=== PATIENT | female | born 1975 | race Caucasian/White ===

== ENCOUNTER 2016-06-30 21:56 | Emergency (ER) | payer BC ==
--- NOTE | 2016-06-30 22:03 | UC ---
Skin Complaint HPI - History of Current Complaint Time Seen by Provider: 06/30/16 21:58 Stated Complaint: RASH Hx Obtained From: Patient Hx Last Menstrual Period: 11/19/15 ?: No Onset/Duration: Sudden Onset, Lasting Hours - 12, Worse Since - this evening. Timing: Constant Location: Diffuse - abdomen, chest, back Character: Pruritus, Redness Aggravating: Nothing Alleviating: Nothing Associated Signs & Symptoms: Negative: Diaphoresis, Weakness, Fever, Chills, Throat Tightening Related History: Other: - has had a virus this past week. - Allergy/Home Medications Allergies/Adverse Reactions: Allergies Allergy/AdvReac Type Severity Reaction Status Date / Time Latex Allergy Unknown See Comment Verified 06/30/16 22:03 Erythromycin AdvReac Unknown Nausea Verified 06/30/16 22:03 Home Medications: Home Medications diPHENhydraMINE PO* [Benadryl PO*] 50 mg PO Q6H PRN 06/30/16 [History Confirmed 06/30/16] Review of Systems Skin: Rash All Other Systems Reviewed And Are Negative: Yes PMH/Surg Hx/FS Hx/Imm Hx Endocrine History Of: Reports: Thyroid Disease - JUST WITH Denies: Diabetes, Hypothyroidism Cardiovascular History Of: Denies: Cardiac Disorders, Hypertension Respiratory History Of: Denies: COPD, Asthma GI/ History Of: Denies: Ulcer Psychological History Of: Denies: Anxiety, Depression - Surgical History Surgical History: None - Family History Known Family History: Positive: Cardiac Disease, Hypertension, Diabetes - Social History Occupation: Employed Full-time Lives: With Family Alcohol Use: Rare Substance Use Type: None Smoking Status (MU): Former Smoker When Did the Patient Quit Smoking/Using Tobacco: 20 YRS AGO Physical Exam Triage Information Reviewed: Yes Appearance: Well-Appearing, No Pain Distress, Well-Nourished Vital Signs Reviewed: Yes Eyes: Positive: Conjunctiva Clear ENT: Positive: Pharynx normal, TMs normal Neck exam: Normal Respiratory Exam: Normal Cardiovascular Exam: Normal Musculoskeletal Exam: Normal Neurological Exam: Normal Psychological Exam: Normal Skin: Positive: rashes Course/Dx - Differential Diagnoses - Skin Complaint Differential Diagnoses: Drug Rash, Eczema, Urticaria - Diagnoses Provider Diagnoses: acute utricaria. Viral [place] Discharge - Discharge Plan Condition: Stable Disposition: HOME Prescriptions: predniSONE TAB* [Deltasone TAB*] 10 mg PO DAILY #18 tab Patient Education Materials: Viral Exanthem (ED), Urticaria (ED), Prednisone ( By mouth)
[2016-06-30] MEDS ORDERED: predniSONE TAB* 10 MG PO ONE (22:09)
[2016-06-30 22:20] VITALS: BP 126/96
== END 2016-06-30 22:17 | disposition home or self-care (01) ==
LOC: UCCORT 21:56
DX: L50.9 Urticaria, unspecified (principal); B09 Unspecified viral infection characterized by skin and mucous membrane lesions; Z88.1 Allergy status to other antibiotic agents; Z87.891 Personal history of nicotine dependence
CPT/HCPCS: 99212; G0463; J7512

== ENCOUNTER 2016-06-30 23:32 | Emergency (ER) | payer BC ==
[2016-07-01 00:33] VITALS: BP 132/83
--- NOTE | 2016-07-01 01:14 | ED ---
Jesus Ro Billy, scribed for Andre Ahumada MD on 06/30/16 at 2357 . Allergic Reaction/Systemic - HPI Summary HPI Summary: Patient is a 40 year-old female coming to [facility] presenting with diffuse hives and tingling sensation since this morning, which have progressively gotten worse throughout the day. She also states that she had blurred vision while driving. She took 25mg benadryl at 2100 and another 25mg at 2230, which have improved her symptoms. She reports recent viral illness. - History of Current Complaint Chief Complaint: EDAllergicReaction Time Seen by Provider: 06/30/16 23:52 Hx Obtained From: Patient Hx Last Menstrual Period: 11/19/15 Onset/Duration: Gradual Onset, Started hours ago, Still Present Timing: Constant Severity Initially: Moderate Severity Currently: Moderate Location: Diffuse Character: Hives Aggravating Factor(s): Nothing Alleviating Factor(s): Antihistamines Associated Signs And Symptoms: Positive: Other: - diffuse tingling, blurred vision - Allergies/Home Medications Allergies/Adverse Reactions: Allergies Allergy/AdvReac Type Severity Reaction Status Date / Time Latex Allergy Unknown See Comment Verified 06/30/16 22:03 Erythromycin AdvReac Unknown Nausea Verified 06/30/16 22:03 PMH/Surg Hx/FS Hx/Imm Hx Endocrine/Hematology History: Reports: Hx Thyroid Disease - JUST WITH Denies: Hx Diabetes Cardiovascular History: Denies: Hx Hypertension Respiratory History: Denies: Hx Asthma, Hx Chronic Obstructive Pulmonary Disease (COPD) GI History: Denies: Hx Ulcer History: Denies: Hx Kidney Infection, Other Problems/Disorders Psychiatric History: Denies: Hx Anxiety, Hx Depression, Other Psychiatric Issues/Disorders Infectious Disease History: No Infectious Disease History: Denies: Hx Hepatitis, Hx Human Immunodeficiency Virus (HIV), Traveled Outside the [place] in Last 30 Days - Family History Known Family History: Positive: Cardiac Disease, Hypertension, Diabetes - Social History Alcohol Use: Rare Substance Use Type: Reports: None Smoking Status (MU): Former Smoker Review of Systems Positive: Blurred Vision Positive: Rash Positive: Paresthesia - diffuse tingling All Other Systems Reviewed And Are Negative: Yes Physical Exam Triage Information Reviewed: Yes Vital Signs On Initial Exam: Initial Vitals Temp Pulse Resp BP Pulse Ox 98.8 F 86 16 117/74 100 06/30/16 23:39 01/07/17 23:39 06/30/16 23:39 06/30/16 23:39 06/30/16 23:39 Vital Signs Reviewed: Yes Appearance: Positive: Well-Appearing, No Pain Distress Skin: Positive: Warm, Other - scattered urticaria Head/Face: Positive: Normal Head/Face Inspection Eyes: Positive: EOMI, SHANDA ENT: Positive: Normal ENT inspection Neck: Positive: Supple Respiratory/Lung Sounds: Positive: Clear to Auscultation, Breath Sounds Present Cardiovascular: Positive: Normal Abdomen Description: Positive: Nontender, Soft Bowel Sounds: Positive: Present Musculoskeletal: Positive: Strength/ROM Intact Neurological: Positive: Sensory/Motor Intact, Alert, Oriented to Person Place, Time Psychiatric: Positive: Affect/Mood Appropriate Diagnostics - Vital Signs Vital Signs Temp Pulse Resp BP Pulse Ox 06/30/16 23:39 98.8 F 86 16 117/74 100 - Laboratory Lab Statement: Any lab studies that have been ordered have been reviewed, and results considered in the medical decision making process. Allergic Reaction Course/Dx - Diagnoses Provider Diagnoses: Rash Discharge - Discharge Plan Condition: Stable Disposition: HOME Patient Education Materials: Acute Rash (ED) Referrals: Susanna Peres MD [Medical Doctor] - The documentation as recorded by the Jesus love Billy accurately reflects the service I personally performed and the decisions made by Zita hodgson David, MD.
== END 2016-07-01 00:31 | disposition home or self-care (01) ==
LOC: ED 23:32
DX: R21 Rash and other nonspecific skin eruption (principal); L50.9 Urticaria, unspecified; H53.8 Other visual disturbances; Z87.891 Personal history of nicotine dependence
CPT/HCPCS: 99282

== ENCOUNTER 2016-07-02 07:07 | Emergency (ER) | payer BC ==
[2016-07-02 07:20] VITALS: BP 152/101
[2016-07-02] MEDS ORDERED: methylPREDNISolone 125 MG* 2 ML VIAL IM ONE (07:39)
--- NOTE | 2016-07-02 07:39 | UC ---
Skin Complaint HPI - HPI Summary HPI Summary: third visit in 3 days for hives. "I am very anxious about this." No clear precipitant, but for 3d has had hives coming and going all over body. Was here, Rx steroids, it went away but came back later next day. Went to ER, told to take Benadryl along with steroids. Skiipped dose of steroids yesterday, but took it today. This AM abdomen covered with hives, hands red and swollen. "I feel like there is a lump in my throat." No wheezing, no mouth swelling, able to eat and drink normally. Admits to severe anxiety with this. No new pets, meds. 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 Negative: Wheezing, Syncope - Allergy/Home Medications Allergies/Adverse Reactions: Allergies Allergy/AdvReac Type Severity Reaction Status Date / Time Latex Allergy Unknown See Comment Verified 07/02/16 07:20 Erythromycin AdvReac Unknown Nausea Verified 07/02/16 07:20 Home Medications: Home Medications predniSONE TAB* [Deltasone TAB*] 30 mg PO DAILY 07/02/16 [History Confirmed 03/10] Review of Systems Constitutional: Negative Skin: Rash Eyes: Negative ENT: Negative Respiratory: Negative Cardiovascular: Negative Gastrointestinal: Negative Genitourinary: Negative Motor: Negative Neurovascular: Negative Musculoskeletal: Negative Neurological: Negative Psychological: Anxious All Other Systems Reviewed And Are Negative: Yes PMH/Surg Hx/FS Hx/Imm Hx Endocrine History Of: Reports: Thyroid Disease - JUST WITH Denies: Diabetes, Hypothyroidism Cardiovascular History Of: Denies: Cardiac Disorders, Hypertension Respiratory History Of: Denies: COPD, Asthma GI/ History Of: Denies: Ulcer Psychological History Of: Denies: Anxiety, Depression - Surgical History Surgical History: None - Family History Known Family History: Positive: None, Cardiac Disease, Hypertension, Diabetes - Social History Occupation: Employed Full-time Lives: With Family Alcohol Use: Rare Substance Use Type: None Smoking Status (MU): Former Smoker When Did the Patient Quit Smoking/Using Tobacco: 20 YRS AGO Physical Exam Triage Information Reviewed: Yes Appearance: Well-Appearing, No Pain Distress, Well-Nourished Vital Signs: Initial Vital Signs Temp 97.4 F 07/02/16 07:11 Pulse 97 07/02/16 07:11 Resp 20 07/02/16 07:11 BP 152/101 07/02/16 07:11 Pulse Ox 100 07/02/16 07:11 Vital Signs Reviewed: Yes Eye Exam: Normal Eyes: Positive: Conjunctiva Clear ENT Exam: Normal ENT: Positive: Hearing grossly normal, Pharynx normal. Negative: Tonsillar swelling, Tonsillar exudate, Trismus, Muffled/hoarse voice Neck exam: Normal Neck: Positive: Supple, Nontender Respiratory Exam: Normal Respiratory: Positive: Lungs clear. Negative: Wheezing Cardiovascular Exam: Normal Musculoskeletal Exam: Normal Neurological Exam: Normal Psychological Exam: Normal Skin Exam: Other - urticaria on abdomen and lower back; hands reddened and slightly swollen Course/Dx - Differential Diagnoses - Skin Complaint Differential Diagnoses: Contact Dermatitis, Urticaria - Diagnoses Provider Diagnoses: urticaria Discharge - Discharge Plan Condition: Stable Disposition: HOME Prescriptions: hydrOXYzine HCL TAB* [Atarax TAB*] 50 mg PO QID PRN #30 tab PRN Reason: hives or anxiety Patient Education Materials: Urticaria (ED)
[2016-07-02] MEDS ORDERED: methylPREDNISolone 125 MG* 2 ML VIAL IM SCH (08:00)
== END 2016-07-02 08:10 | disposition home or self-care (01) ==
LOC: UCCORT 07:07
DX: L50.9 Urticaria, unspecified (principal); Z87.891 Personal history of nicotine dependence
CPT/HCPCS: 96372; 99212; G0463; J2930

== ENCOUNTER 2017-04-23 19:09 | Emergency (ER) | payer BC ==
[2017-04-23 19:57] VITALS: BP 131/86
--- NOTE | 2017-04-23 20:16 | UC ---
Throat Pain/Nasal Cesar HPI - HPI Summary HPI Summary: throat pain for 3 days, swollen tonsils and a cough - History of Current Complaint Chief Complaint: UCRespiratory Stated Complaint: SORE THROAT Time Seen by Provider: 04/23/17 20:00 Hx Obtained From: Patient Hx Last Menstrual Period: 04/12/17 ?: No Onset/Duration: Sudden Onset, Lasting Days Severity: Moderate Associated Signs & Symptoms: Positive: Dysphagia - Allergies/Home Medications Allergies/Adverse Reactions: Allergies Allergy/AdvReac Type Severity Reaction Status Date / Time Latex Allergy Unknown See Comment Verified 04/23/17 19:57 Erythromycin AdvReac Unknown Nausea Verified 04/23/17 19:57 Home Medications: Home Medications Lorazepam [Ativan 0.5 MG TAB] 0.25 mg PO Q8HR PRN 04/23/17 [History Confirmed ] Sertraline* [Zoloft*] 25 mg PO DAILY 04/23/17 [History Confirmed 04/23/17] PMH/Surg Hx/FS Hx/Imm Hx Previously Healthy: Yes - Surgical History Surgical History: None - Family History Known Family History: Positive: None, Cardiac Disease, Hypertension, Diabetes - Social History Alcohol Use: Rare Substance Use Type: None Smoking Status (MU): Former Smoker When Did the Patient Quit Smoking/Using Tobacco: 20 YRS AGO Review of Systems Constitutional: Negative Skin: Negative Eyes: Negative ENT: Sore Throat Respiratory: Negative Cardiovascular: Negative Gastrointestinal: Negative Genitourinary: Negative Motor: Negative Neurovascular: Negative Musculoskeletal: Negative Neurological: Negative Psychological: Negative Is Patient Immunocompromised?: No All Other Systems Reviewed And Are Negative: Yes Physical Exam Triage Information Reviewed: Yes Appearance: Well-Nourished, Ill-Appearing, Pain Distress Vital Signs: Initial Vital Signs Temp 98.3 F 04/23/17 19:50 Pulse 74 04/23/17 19:50 Resp 18 04/23/17 19:50 BP 131/86 04/23/17 19:50 Pulse Ox 100 04/23/17 19:50 Vital Signs Reviewed: Yes Eye Exam: Normal ENT: Positive: Pharyngeal erythema, Tonsillar swelling - with small cyst like bubbles on right tonsil Dental Exam: Normal Neck: Positive: Enlarged Nodes @ - bilateral cervical Respiratory Exam: Normal Respiratory: Positive: Chest non-tender, Lungs clear, Normal breath sounds Cardiovascular Exam: Normal Cardiovascular: Positive: RRR, No Murmur, Pulses Normal Abdominal Exam: Normal Abdomen Description: Positive: Nontender, No Organomegaly, Soft Bowel Sounds: Positive: Present Musculoskeletal Exam: Normal Musculoskeletal: Positive: Strength Intact, ROM Intact, No Edema Neurological Exam: Normal Neurological: Positive: Alert, Muscle Tone Normal Psychological Exam: Normal Skin Exam: Normal Throat Pain/Nasal Course/Dx - Course Course Of Treatment: hx obtained,exam performed ,meds reviewed, treated for pharyngitis - Differential Dx/Diagnosis Differential Diagnosis/HQI/PQRI: Otitis Media, Pharyngitis, Sinusitis, URI Provider Diagnoses: pharyngitis Discharge - Discharge Plan Condition: Stable Disposition: HOME Prescriptions: predniSONE TAB* [Deltasone TAB*] 40 mg PO DAILY #14 tab Patient Education Materials: Pharyngitis (ED) Forms: *Work Release Additional Instructions: 1. Increase fluid intake and get plenty of rest. 2. Warm fluid, vicks, salt water gargles, to soothe the throat 3. take the prednisone as prescribed.
[2017-04-23] MEDS ORDERED: Lidocaine 2% VISCOUS* 15 ML UDC PO ONE (20:26)
== END 2017-04-23 20:41 | disposition home or self-care (01) ==
LOC: UCCORT 19:09
DX: J02.9 Acute pharyngitis, unspecified (principal); Z91.040 Latex allergy status; Z88.1 Allergy status to other antibiotic agents; Z87.891 Personal history of nicotine dependence
CPT/HCPCS: 99212; G0463

== ENCOUNTER 2018-02-15 10:12 | Emergency (ER) | payer BC ==
[2018-02-15 10:19] VITALS: BP 104/69
--- NOTE | 2018-02-15 10:37 | UC ---
Skin Complaint HPI - HPI Summary HPI Summary: IN-ROOM NOTE: Patient is a 42 y/o F w/ c/o 102.3 F FEVER onsetting yesterday alongside SORE THROAT. Patient has HIVES ON BREASTS. She has Hx of hives and notes when she has viral infection she experiences episodes of hives. She also notes EAR PAIN. Patient has prescription for hydroxyzine, but has not taken it. Prescribed this past November for anxiety. She denies cough. Not hypertensive during this . This is second . Patient has one child. Other than preeclampisa during first , Pt reports no problems. Describes current as "hard". Patient is hypothyroid, has levothyroxine and takes prenatals. taking fluoridex as well. Patient feels "ACHY". She denies abdominal pain and vaginal discharge. Daughter had fever this past four days, since resolved. Patient also reports she herself had recent RUTHERFORD and nasal discharge some weeks ago which has since resolved. FHX of diabetes, HTN is noted. Patient had DIARRHEA this morning. She states she has been hydrating a lot. Patient had caesarean section. NOTE: Vital signs stable; afebrile, pulse ox 100. Visit Hx: 20 weeks . US from 11/22/2017 confirms cardiac activity and notes right ovarian cysts. Previous visits for sore throats. Patient has Dx of preeclampisa in 2012. This is the second , patient has minimal decreased hypothyroid SYNTHROID NURSES NOTE: pt is 20 weeks . pt had a temp last night 102.3. pt c/o sore throat. pt states she also has hives all over her breasts. pt has not had a flu shot. pt states her lymph nodes in her neck are swollen. pt states this started night. pt states for the past 2 weeks has had sinus headaches. On note, pain is 7/10. - History of Current Complaint Chief Complaint: UCRas Time Seen by Provider: 02/15/18 10:19 Stated Complaint: FEVER, RASH Hx Obtained From: Patient Hx Last Menstrual Period: 04/12/17 Onset/Duration: Lasting Days, Lasting Weeks, Still Present - FEVER, HIVES ON BREASTS, SORE THROAT, BODY ACHES, SWEATING, EAR PAIN, DIARRHEA, Resolved - RUTHERFORD AND NASAL DISCHARGE Skin Exposure Onset/Duration: Days Ago - HIVES ONSET YESTERDAY Timing: Constant Current Severity: Severe - 7/10 Pain Intensity: 7 Pain Scale Used: 0-10 Numeric - 7/10 Location: Discrete - breasts Character: Hives Aggravating Factor(s): Nothing Alleviating Factor(s): Nothing Associated Signs & Symptoms: Positive: Fever - Allergy/Home Medications Allergies/Adverse Reactions: Allergies Allergy/AdvReac Type Severity Reaction Status Date / Time erythromycin base Allergy Nausea Verified 02/15/18 10:21 [From Erythrocin] latex Allergy See Comment Verified 02/15/18 10:21 Review of Systems Constitutional: Fever, Other - POSITIVE: BODY ACHES Skin: Other - POSITIVE: HIVES ON BREASTS ENT: Sore Throat, Ear Ache, Nasal Discharge - A COUPLE OF WEEKS AGO, SINCE RESOLVED Respiratory: Other - NEGATIVE: COUGH Gastrointestinal: Diarrhea, Other - NEGATIVE: ABDOMINAL PAIN Genitourinary: Other - NEGATIVE: VAGINAL DISCHARGE Neurological: Headache - SOME WEEKS AGO, SINCE RESOLVED All Other Systems Reviewed And Are Negative: Yes - Comments Additional Review of Systems Comments: NEGATIVE: COUGH, ABDOMINAL PAIN, VAGINAL DISCHARGE. POSITIVE: FEVER, SORE THROAT, HIVES ON BREASTS, BODY ACHES, DIARRHEA. ALSO NOTES RUTHERFORD AND NASAL DISCHARGE A COUPLE OF WEEKS AGO, SINCE RESOLVED PMH/Surg Hx/FS Hx/Imm Hx Endocrine History: Hypothyroidism GI/ History: Other Other GI/ History: POSITIVE: preeclampsia Psychological History: Anxiety - Surgical History Surgical History: Yes Surgery Procedure, Year, and Place: - Family History Known Family History: Positive: Cardiac Disease, Hypertension, Diabetes - Social History Alcohol Use: None Substance Use Type: None Smoking Status (MU): Former Smoker When Did the Patient Quit Smoking/Using Tobacco: 20 YRS AGO Physical Exam - Summary Physical Exam Summary: Appearance: The patient is well-appearing, is in no pain distress, and is well- nourished. Eyes: Conjunctiva are clear. ENT: The hearing is grossly normal, the pharynx is normal, and the TMs are normal. There is no muffled or hoarse voice. BILATERAL LARGE TONSILS JUST TOUCHING UVULA. NO DIFFICULTY WITH SECRETIONS OR VOICE. Neck: The neck is supple and there is no lymphadenopathy. Respiratory: The chest is nontender. The lungs are clear, there are normal breath sounds, and there is no respiratory distress. Cardiovascular: Heart is regular rate and rhythm. 1/6 SYSTOLIC MURMUR Abdomen: The abdomen is soft and nontender. There is no organomegaly. Bowel sounds: present Musculoskeletal: Strength is intact. The patient moves all extremities. Neurological: The patient is alert. Psychological: The patient displays age appropriate behavior Skin: Negative for rashes. ON RIGHT BREAST, THERE ARE SMALL NONVASCULAR ERYTHEMATOUS SPOTS THAT YOAN. LOCALIZED RASH ON BOTH BREASTS THAT ARE SMALL TINY MACULES, SCATTERED, PRURITIC. No evidence of fungal rash. Triage Information Reviewed: Yes Vital Signs: Initial Vital Signs Temp 97.4 F 02/15/18 10:15 Pulse 86 02/15/18 10:15 Resp 18 02/15/18 10:15 BP 104/69 02/15/18 10:15 Pulse Ox 100 02/15/18 10:15 Vital Signs Reviewed: Yes Re-Evaluation - Re-Evaluation First Eval Re-Evaluation Time: 11:48 Comment: Discussed results of tests. Patient will be discharged to home. Disussed discharge instructions. She is agreeable with this plan. Course/Dx - Course Course Of Treatment: Medication have been included in the original chart and reviewed. Normal BP reading and no follow-up instructions required. Patient is 42 y/o healthy F 20 weeks confirmed ICP with c/o transisent fever last night to 102 F and sore throat. Her daughter has recently been ill with similar complaints. Her rapid strep is negative. Her tonsils are normally big; they were large and nearly touching uvula. They were not inflamed and no exudate. She was afebrile. The patient also shows a few scattered pruritic, erythematous macules over the superior aspect of both breats. There is no cellulitis. There are no vesciles. There is no evidence of cellulitis. The patient states she had a rash with a previous Hx of a viral. Her flu examination was negative. I believe the patient has a viral pharyngitis. There is no abdominal pain, there is no vaginal discharge. The patient appears alert and comfortable. - Diagnoses Provider Diagnoses: viral pharyngitis; contact dermatitis or viral exanthum Discharge - Sign-Out/Discharge Documenting (check all that apply): Patient Departure - DISCHARGE All imaging exams completed and their final reports reviewed: No Studies - Discharge Plan Condition: Stable Disposition: HOME Patient Education Materials: Pharyngitis (ED) Referrals: Susanna Peres MD [Primary Care Provider] - Additional Instructions: PLEASE SEEK CARE AT THE EMERGENCY DEPARTMENT IF SYMPTOMS WORSEN OR IF NEW SYMPTOMS DEVELOP. FOLLOW UP WITH YOUR PRIMARY CARE PHYSICIAN. As we discussed, urine tests for flu and for strep throat or negative. Use hydrocortisone on your rash continue can take Benadryl, as needed. Cool soaks and calamine may also help. Stay well hydrated, and recheck at any time for a change in the rash or an elevated temperature above 101 for more than 12 hours. Also recheck for any abdominal discomfort Your diagnosis was viral sore throat with a rash that may be an allergic rash or related to your virus. - Billing Disposition and Condition Condition: STABLE Disposition: Home - Attestation Statements Document Initiated by Jena: Yes Documenting Jena: Chandana Chong Provider For Whom Jena is Documenting (Include Credential): Andre Austin M.D. Scribe Attestation: Chandana Ro, scribed for Andre Austin M.D. on 02/15/18 at 1211. Scribe Documentation Reviewed: Yes Provider Attestation: The documentation as recorded by the Chandana love accurately reflects the service I personally performed and the decisions made by me, Andre Austin M.D.
== END 2018-02-15 11:50 | disposition home or self-care (01) ==
LOC: UCEAST 10:12
DX: J02.9 Acute pharyngitis, unspecified (principal); R21 Rash and other nonspecific skin eruption
CPT/HCPCS: 87651; 99211; G0463

== ENCOUNTER 2018-06-25 07:33 | Inpatient (IN) | payer BC ==
[~2018-06-25 07:33] MED LIST: Buffered Lidocaine 0.9% SYRIN* 5 ML/SYR SYRINGE INTRADERM ONE; Lactated Ringers 1000 ML Bag* 1,000 ML IV SCH; Sodium Citrate/Citric Acid* 15 ML UDC PO ONE
--- NOTE | 2018-06-25 08:40 | HP ---
General Information - General Information Maternal Age: 42 Grav: 3 Para: 1 SAB: 1 IEA: 0 Estimated Due Date: 07/02/18 Determined By: LMP Maternal Blood Type and Rh: A Negative - Results this Serology/RPR Result: Non-Reactive Rubella Result: Non-Immune HBsAg Result: Negative HIV Result: Negative GBS Culture Result: Negative Past Medical History Delivery History: See Records Pertinent Past Medical History: See Records Pertinent Past Surgical History: See Records Pertinent Family History: See Records - Antepartal Records Antepartal Records: Reviewed, Complicated by: - diabetes A1/ gestational hypertension/ AMA Review of Systems Constitutional: Comfortable CV Complaint: No Respiratory: Shortness of Breath: No Gastrointestinal: No Nausea/Vomiting Genitourinary: No Dysuria, No Bleeding, No Leaking Fluid Musculoskeletal: No Complaint Neurological: No Headache Movement: Normal Exam Allergies/Adverse Reactions: Allergies erythromycin base [From Erythrocin] Allergy (Intermediate, Verified 06/22/18 09: 36) Nausea latex Allergy (Mild, Verified 06/22/18 09:36) See Comment 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 Vital Signs 06/25/18 08:04 Temperature 97.3 F Pulse Rate 102 Respiratory 18 Rate Blood Pressure 123/88 (mmHg) O2 Sat by Pulse 99 Oximetry - Measurements Height: 5 ft 4 in Weight: 192 lb Weight in lbs: [phone] Body Mass Index (BMI): 32.9 Pre- Weight: 163 lb Weight Gained This : 29 lbs and 0 ozs - Exam Breast: Breast Exam Deferred CVA: No CVA Tenderness Extremities: No Edema Heart: Normal Rhythm/Heart Sounds HEENT: No Significant Findings Lungs: Clear Bilaterally Rectal: Rectal Exam Deferred Reflexes: DTR 2+ Thyroid: No Thyromegaly - Abdominal Exam Abdomen Exam: Non-Tender - Ultrasound/Biophysical Profile Ultrasound Status: Not Done Targeted Exam Findings See L&D Outpatient Visit Provider Note for Findings: Yes Cervical Exam: Closed Effacement: <50% Station: -2 Presenting Part: Vertex Membrane Status: Intact EFM Findings - External Monitor Findings External Monitor Findings: Accelerations Present, No Pattern of Variable or Late Decelerations, Variability Moderate Contractions: None Assessment/Plan - Obstetrical Risk Factors Obstetrical Risk Factors: Gestational Hypertension, Diabetes - Pt to have repeat delivery. Pt had signed consent form prior and is aware of risks associated with section to include but not limites to infection bleeding damage to internal organs, pain , scarring ,need for further surgery. Pt feels confidant in this decision and all questions were answered to pt's satisfaction. - Plan Plan: Expedite C/S Delivery
[2018-06-25] MEDS ORDERED: ceFOXitin 2 GM IVPREMIX* 2 GM/50 ML BAG IVPB ONE (08:43)
[2018-06-25] MEDS ORDERED: Lactated Ringers 1000 ML Bag* 1,000 ML IV ONE (08:44)
[2018-06-25] MEDS ORDERED: ceFOXitin 2 GM IVPREMIX* 2 GM/50 ML BAG ONE (08:44)
[2018-06-25] MEDS ORDERED: Phenylephrine INJ* 10 MG/ML 1 ML VIAL (10 MG) ONE (08:56)
[2018-06-25] MEDS ORDERED: Bupivacaine 0.25% W/EPI* 10 ML SDV ONE (08:57)
[2018-06-25] MEDS ORDERED: Morphine PF AMP (0.5MG/ML)* 5 MG/10 ML AMP ONE (08:57)
[2018-06-25] MEDS ORDERED: Lactated Ringers 1000 ML Bag* 1,000 ML IV SCH ×2 (09:00→16:00)
[2018-06-25] MEDS ORDERED: Scopolamine 1.5 mg* PATCH TRANSDERM SCH (10:00)
[2018-06-25] MEDS ORDERED: Ondansetron INJ* 2 MG/ML VIAL ONE (11:00)
[2018-06-25] MEDS ORDERED: OXYTOCIN* 10 UNITS/ML 1 ML VIAL ONE ×3 (11:00→14:29)
[2018-06-25] MEDS ORDERED: Lidocaine 2% PF* 10 ML AMP ONE (13:41)
[2018-06-25] MEDS ORDERED: Bupivacaine-MPF SPINAL* 7.5 MG/ML - 2ML AMP ONE (13:42)
[2018-06-25] MEDS ORDERED: fentaNYL* 50 MCG/ML 2 ML VIAL (100 MCG VIAL) IV PRN (14:52)
[2018-06-25] MEDS ORDERED: Naloxone* 0.4 MG/ML 1 ML VIAL IV PRN ×2 (14:52→14:54)
[2018-06-25] MEDS ORDERED: Naloxone* 2 MG in NS 0.9% 250 ML* 250 ML IV PRN (14:54)
[2018-06-25] MEDS ORDERED: Ketorolac INJ* 30 MG/ML 1 ML VIAL IV PRN (14:54)
[2018-06-25] MEDS ORDERED: Ondansetron INJ* 2 MG/ML VIAL IV PRN (14:54)
[2018-06-25] MEDS ORDERED: DiMENhydriNATE IV* 50 MG/ML VIAL IV PUSH PRN (14:54)
[2018-06-25] MEDS ORDERED: oxyCODONE/Acetamin 5/325 MG* TAB PO PRN (14:54)
[2018-06-25] MEDS ORDERED: Nalbuphine* 10 MG/ML 1 ML VIAL IV PRN (14:54)
[2018-06-25] MEDS ORDERED: Witch Hazel PAD* JAR TOPICAL PRN (15:14)
[2018-06-25] MEDS ORDERED: Glycerin ADULT SUPP PR PRN (15:14)
[2018-06-25] MEDS ORDERED: Dibucaine 1% 28.35 GM TUBE PR PRN (15:14)
[2018-06-25] MEDS ORDERED: Oxytocin in LR* 20 UNITS/1,000 ML BAG IVPB ONE (16:14)
[2018-06-25] MEDS ORDERED: Sertraline* 25 MG TAB PO SCH (18:15)
[2018-06-25] MEDS: Simethicone TAB* 80 MG TAB.CHEW PO SCH ×2 (18:31→22:14)
[2018-06-25] MEDS: Docusate CAP* 100 MG PO SCH (20:59)
--- NOTE | 2018-06-25 22:26 | OP ---
OPERATIVE REPORT: DATE OF OPERATION: 06/25/18 DATE OF : 77 SURGEON: Dr. Sherry Hernandez. CHILD WELFARE COUNSELOR: Kanwal Ferro CNM SECOND WAREHOUSE CLERK: Yosi Shelton CNM ANESTHESIOLOGIST: Dr. Rachel. ANESTHESIA: Spinal. PRE-OP DIAGNOSES: Intrauterine at 39 and 0/7th weeks, gestational diabetes, and gestationa l hypertension. POST-OP DIAGNOSES: Intrauterine at 39 and 0/7th weeks, gestational diabetes, and gestation al hypertension. OPERATIVE PROCEDURE: Repeat low transverse section with vacuum extraction and lysis of adhe amanda. ESTIMATED BLOOD LOSS: 500 cc. URINE OUTPUT: 50 cc of clear yellow urine. FLUIDS: 2800 cc of crystalloid. FINDINGS: Revealed a vertex male with weight of 8 pounds and 15 ounces, Apgars 9 at 1 minute and 10 at 5 minutes. No nuchal cord. Light meconium. Normal palpated uterus without evidence of re tained membranes or placental tissue. Normal- appearing placenta, 3-vessel cord manually extracted i ntact. Normal-appearing tubes and ovaries with a small adhesion of the right ovary to the right fall opian tube which was taken down and adhesion was sent to Pathology. COMPLICATIONS: None apparent. DISPOSITION: Stable to recovery room. DESCRIPTION OF PROCEDURE: The patient was placed in the dorsal lithotomy position. The abdomen was p repped and draped in a sterile standard fashion. Anesthesia was tested to appropriate level. The pa tient was identified with universal protocol for correct procedure, patient, and position. After con firming excellent level of anesthesia, an incision was made through prior incision with scalpel. Thi s was carried down through to the fascia. The fascia was scored in the midline and the fascial incis ion was extended laterally and superiorly using curved Munguia scissors. The fascia was sharpl y and bluntly from the rectus muscle both superiorly and inferiorly and the peritoneum was then enter ed bluntly. The peritoneal incision was extended bluntly. Bladder blade was inserted. Lower uterin e segment was identified. The lower uterine segment was tented up with an Allis and incised down to membranes. The incision was extended laterally and superiorly using bandage scissors. Amniotomy was created for drainage of light meconium tinged fluid. Attempt was made at delivery of the 's h ead; however, vacuum assistance was required x1. Baby was delivered anterior posterior shoulder and then the cord was milked, clamped and then cut. The infant was handed off to waiting custom stock maker. The placenta was then manually extracted, noted to be 3- vessel cord, intact. The uterus was exteri orized, wrapped in warm moist laparotomy sponge. The uterine cavity was explored and noted to be sabine e of any membranes or placental tissue. The uterine incision itself was reapproximated using 0 Vicry l x2 in a running fashion. There was a small adhesion from the right ovary to the left ovary, which was fenestrated. It was taken down with Bovie coagulation and sent to Pathology as it appeared to be hemosiderin laden. Uterus was returned intra- abdominally. Colic gutters were lavaged. Hemostasis was assured at the hysterotomy site. The peritoneum was then reapproximated using 3-0 Vicryl in a r unning fashion. The subfascial area was visualized and noted to be hemostatic and the fascia itself was reapproximated using 3-0 Vicryl x2 in a running fashion. Subcu was lavaged. Hemostasis assured. A fat stitch was placed using 3-0 Vicryl in an interrupted fashion. The skin was then reapproximate d using a Monocryl in a subcuticular fashion. Mastisol and then Steris were applied for complete rupesh sure of the section. [id number] #: [id number]
[2018-06-26] MEDS: Acetaminophen TAB* 325 MG PO PRN (00:41)
[2018-06-26] MEDS ORDERED: Ibuprofen TAB* 600 MG ONE (05:54)
[2018-06-26] MEDS ORDERED: Levothyroxine TAB* 25 MCG TAB PO SCH (06:00)
[2018-06-26] MEDS ORDERED: oxyCODONE/Acetamin 5/325 MG* TAB PO PRN ×2 (06:00)
[2018-06-26 06:55] LABS: ABS Basophils 0 10^3/ul (0-0.2); ABS Eosinophils 0 10^3/ul (0-0.6); ABS Lymphocytes 1.8 10^3/ul (1.0-4.8); ABS Monocytes 0.7 10^3/ul (0-0.8); ABS Nucleated RBC 0 10^3/ul; Eosinophil % 0.4 %; Hematocrit 32 % (35-47); Hemoglobin 10.9 g/dl (12.0-16.0); Lymphocyte % 15.1 %; Mean Corpuscular HGB Conc 34 g/dl (31-36); Mean Corpuscular Hemoglobin 28 pg (27-31); Mean Corpuscular Volume 81 fL (80-97); Mean Platelet Volume 9.2 fL (7.4-10.4); Nucleated Red Blood Cells % 0; Platelet Count 189 10^3/ul (150-450); Red Blood Count 3.92 10^6/ul (4.00-5.40); Red Cell Distribution Width 15 % (10.5-15); White Blood Count 11.6 10^3/ul (3.5-10.8)
[2018-06-26] MEDS: Docusate CAP* 100 MG PO SCH ×3 (08:48→20:36)
[2018-06-26] MEDS: Simethicone TAB* 80 MG TAB.CHEW PO SCH ×3 (08:48→20:54)
[2018-06-26] MEDS: Ferrous Gluconate TAB* 324 MG TAB PO SCH ×2 (08:49→20:37)
[2018-06-26] MEDS: Prenatal Vitamin TAB PO SCH (08:53)
[2018-06-26] MEDS ORDERED: RHO D Immune Globulin (HUMAN)* 300 MCG = 1,500 I.U. INJ IM ONE (12:01)
[2018-06-26] MEDS: Ibuprofen TAB* 600 MG PO PRN ×2 (12:57→18:19)
[2018-06-26] MEDS: Sertraline* 25 MG TAB PO SCH (13:28)
[2018-06-26] MEDS ORDERED: Zolpidem TAB* 5 MG PO PRN (21:00)
[2018-06-27] MEDS: Ibuprofen TAB* 600 MG PO PRN ×3 (00:27→18:23)
[2018-06-27] MEDS: Docusate CAP* 100 MG PO SCH ×4 (00:51→19:54)
[2018-06-27] MEDS: Acetaminophen TAB* 325 MG PO PRN ×3 (04:04→15:30)
[2018-06-27] MEDS: Simethicone TAB* 80 MG TAB.CHEW PO SCH ×4 (08:59→19:54)
[2018-06-27] MEDS: Prenatal Vitamin TAB PO SCH (08:59)
[2018-06-27 10:14] VITALS: BP 131/84
[2018-06-27] MEDS: Sertraline* 25 MG TAB PO SCH (15:29)
== END 2018-06-27 21:13 | disposition home or self-care (01) | DRG 540 ==
LOC: MCHOB 07:33
PROVIDERS: ADMIT Obstetrics & Gynecology; ATTEND Obstetrics & Gynecology
PROC: 4A1HXCZ Monitoring of Products of Conception, Cardiac Rate, External Approach (ICD-10-PCS; 2018-06-25)
PROC: 0UN00ZZ Release Right Ovary, Open Approach (ICD-10-PCS; 2018-06-25)
PROC: 10D00Z1 Extraction of Products of Conception, Low, Open Approach (ICD-10-PCS; principal; 2018-06-25 09:00)
DX: O34.211 Maternal care for low transverse scar from previous cesarean delivery (principal); O13.4 Gestational [pregnancy-induced] hypertension without significant proteinuria, complicating childbirth; O24.429 Gestational diabetes mellitus in childbirth, unspecified control; O99.284 Endocrine, nutritional and metabolic diseases complicating childbirth; E03.9 Hypothyroidism, unspecified; N73.6 Female pelvic peritoneal adhesions (postinfective); O99.62 Diseases of the digestive system complicating childbirth; Z88.1 Allergy status to other antibiotic agents; Z91.040 Latex allergy status; Z3A.39 39 weeks gestation of pregnancy; Z37.0 Single live birth; Z67.11 Type A blood, Rh negative; O77.0 Labor and delivery complicated by meconium in amniotic fluid
CPT/HCPCS: 36415; 85025; 85461; 86900; 86901; A9270-GY; J0694; J1885; J2001; J2405; J2590; J2790

== ENCOUNTER 2019-07-21 09:09 | Emergency (ER) | payer BC ==
[2019-07-21 10:10] VITALS: BP 110/77
[2019-07-21 10:55] LABS: Influenza A Molecular Negative (Negative); Influenza B Molecular Negative (Negative)
--- NOTE | 2019-07-21 11:03 | UC ---
Respiratory Complaint HPI - HPI Summary HPI Summary: cough x 3 days cough is dry , worse with deep breathing, better with res nasal congestion , pnd, no fever, no chills her daughter has Flu - History of Current Complaint Chief Complaint: UCRespiratory Stated Complaint: COUGH POSS FLU Time Seen by Provider: 07/21/19 10:15 Hx Obtained From: Patient Hx Last Menstrual Period: 04/12/17 ?: No Onset/Duration: Gradual Onset, Lasting Days - 3, Still Present Timing: Constant Severity Initially: Moderate Severity Currently: Moderate Pain Intensity: 2 Character: Cough: Nonproductive Aggravating Factors: Allergens, Exertion, Deep Breaths Associated Signs And Symptoms: Positive: URI, Nasal Congestion. Negative: Dyspnea, Fever, Chills, Wheezing, Hemoptysis - Allergies/Home Medications Allergies/Adverse Reactions: Allergies Allergy/AdvReac Type Severity Reaction Status Date / Time erythromycin base Allergy Intermediate Nausea Verified 07/21/19 10:03 [From Erythrocin] latex Allergy Mild See Comment Verified 07/21/19 10:03 PMH/Surg Hx/FS Hx/Imm Hx Previously Healthy: Yes - Surgical History Surgical History: Yes Surgery Procedure, Year, and Place: c-sectionx2 - Family History Known Family History: Positive: None, Cardiac Disease, Hypertension, Diabetes - Social History Alcohol Use: None Substance Use Type: None Smoking Status (MU): Never Smoked Tobacco Have You Smoked in the Last Year: No When Did the Patient Quit Smoking/Using Tobacco: 20 YRS AGO - Immunization History Most Recent Influenza Vaccination: Unknown Most Recent Pneumonia Vaccination: Unknown Review of Systems All Other Systems Reviewed And Are Negative: Yes Is Patient Immunocompromised?: No Physical Exam Triage Information Reviewed: Yes Appearance: Well-Appearing, No Pain Distress, Well-Nourished Vital Signs: Initial Vital Signs Temp 97.9 F 07/21/19 10:00 Pulse 79 07/21/19 10:00 Resp 16 07/21/19 10:00 BP 110/77 07/21/19 10:00 Pulse Ox 98 07/21/19 10:00 Vital Signs Reviewed: Yes Eye Exam: Normal Eyes: Positive: Conjunctiva Clear ENT: Positive: Normal ENT inspection, Hearing grossly normal, Pharynx normal Neck: Positive: Supple, Nontender, No Lymphadenopathy Respiratory: Positive: Chest non-tender, Lungs clear, Normal breath sounds Cardiovascular Exam: Normal Cardiovascular: Positive: RRR, No Murmur, Pulses Normal Abdominal Exam: Normal Respiratory Course/Dx - Differential Dx/Diagnosis Provider Diagnosis: URI (upper respiratory infection) Discharge ED - Sign-Out/Discharge Documenting (check all that apply): Patient Departure All imaging exams completed and their final reports reviewed: No Studies - Discharge Plan Condition: Stable Disposition: HOME Patient Education Materials: Upper Respiratory Infection (ED) Referrals: Susanna Peres MD [Primary Care Provider] - If Needed - Billing Disposition and Condition Condition: STABLE Disposition: Home
== END 2019-07-21 11:00 | disposition home or self-care (01) ==
LOC: UCCORT 09:09
DX: J06.9 Acute upper respiratory infection, unspecified (principal); Z88.1 Allergy status to other antibiotic agents; Z91.040 Latex allergy status
CPT/HCPCS: 99211; G0463